=== PATIENT | male | born 1965 | race Caucasian/White ===

== ENCOUNTER 2019-05-30 08:31 | Day surgery (SDC) | payer OTHER ==
[2019-05-28 17:55] VITALS: BMI 27.2
--- NOTE | 2019-05-30 09:40 | HP ---
Satellite [facility] - Chief Complaint Chief Complaint: left shoulder pain - Past Medical History Allergies/Adverse Reactions: Allergies Allergy/AdvReac Type Severity Reaction Status Date / Time No Known Allergies Allergy Verified 05/30/19 09:11 - Current Medications Current Medications: Home Medications Medication Instructions Recorded Amlodipine Besylate 5 mg PO DAILY 05/28/19 Famotidine [Pepcid -] 40 mg PO DAILY 05/28/19 Hydrocodone/Acetaminophen 1 each PO Q6H #20 tablet MDD 4 05/30/19 [Hydrocodone-Acetamin 5-325 mg] Satellite Physical Exam - Physical Examination Vital Signs: Vital Signs Period Temp Pulse Resp BP Sys/Sharp Pulse Ox Last 24 Hr 98.6 F 66 20 132/93 97 General Appearance: Well Nourished, Well Developed, Alert & Oriented x3 ENT: Clear Lung: Normal air movement Extremities: Other (left shoulder- + ttp, decr rom, + neer, + acuña, + empty can, nvi, MRI + rct) Neurological: Intact, Alert, Oriented Satellite Impression/Plan - Impression/Plan Impression: left shoulder rct Operative Procedure: left shoulder arthroscopy with RCR, SAD Date to be Performed: 05/30/19
[2019-05-30] MEDS ORDERED: SUCCINYLCHOLINE CHLORIDE 200 MG/10 ML SYRINGE ONE (09:47)
[2019-05-30] MEDS ORDERED: PROPOFOL 20 ML ONE ×2 (09:47→10:46)
[2019-05-30] MEDS ORDERED: ceFAZolin SODIUM 1 GM VIAL ONE (09:48)
[2019-05-30] MEDS ORDERED: DEXAMETHASONE SOD PHOSPHATE 4 MG/1 ML VIAL ONE (09:48)
[2019-05-30] MEDS ORDERED: SODIUM CHLORIDE 0.9% P/F 10 ML VIAL IJ ONE ×2 (09:48→09:51)
[2019-05-30] MEDS ORDERED: LIDOCAINE HCL/PF 2% SDV 5ML VIAL ONE (09:48)
[2019-05-30] MEDS ORDERED: ROPIVACAINE HCL 0.5% 30ML VIAL ONE (09:55)
[2019-05-30] MEDS ORDERED: LIDOCAINE HCL 1%, 10 MG/ML (20ML VIAL) ONE (09:55)
[2019-05-30] MEDS ORDERED: MIDAZOLAM HCL 2 MG/2 ML SINGLE DOSE VIAL ONE (09:56)
[2019-05-30] MEDS ORDERED: ceFAZolin SODIUM 1 GM VIAL IVPB ONE (10:52)
[2019-05-30] MEDS ORDERED: ePHEDrine SULFATE 50 MG/1 ML AMPULE ONE (10:57)
[2019-05-30] MEDS ORDERED: LACTATED RINGERS SOLUTION 1,000 ML IV SCH (12:00)
--- NOTE | 2019-05-30 12:01 | OP ---
Operative Note - Note: Operative Date: 05/30/19 ([facility]) Pre-Operative Diagnosis: left shoulder rct Operation: left shoulder arthroscopy with RCR, SAD Post-Operative Diagnosis: Same as Pre-op Surgeon: Franklyn Albright System Manager: Erik Mendez Anesthesiologist/MACHINING ASSOCIATE: Andi Hinton Anesthesia: General, Local Specimens Removed: shavings Estimated Blood Loss (mls): 5
[2019-05-30 12:34] VITALS: TEMP 97.6
[2019-05-30 13:55] VITALS: BP 133/83; PULSE 75
--- NOTE | 2019-05-31 08:23 | OP ---
DATE OF OPERATION: 05/30/2019 PREOPERATIVE DIAGNOSIS: Left shoulder impingement syndrome and rotator cuff tear. POSTOPERATIVE DIAGNOSIS: Left shoulder impingement syndrome and rotator cuff tear. PROCEDURES PERFORMED: Left shoulder arthroscopy, subacromial decompression, distal clavicle excision and arthroscopic rotator cuff repair. SURGEON: Bridgette Willard M.D. CABLE SPLICER HELPER: SHARAN Scott ANESTHESIOLOGIST: Andi Hinton CRNA ANESTHESIA: Left interscalene block with LMA anesthesia. DRAINS: None. COMPLICATIONS: None. SPECIMENS: Arthroscopic shavings. BLOOD LOSS: 15 mL. BLOOD GIVEN: None. FLUID REPLACEMENT: PlasmaLyte 1000 mL. INDICATIONS: This patient is a 54-year-old male with the preoperative diagnosis of left shoulder pain, impingement syndrome, and rotator cuff tear. After understanding the potential risks, complications, alternatives and benefits of surgery versus nonsurgical treatment, the patient elected to undergo this procedure. DESCRIPTION PROCEDURE: The patient was brought to the operating room. A peripheral IV was placed and IV sedation given. IV clindamycin 900 mg was given. A left interscalene block was performed. LMA anesthesia was induced. He was placed into the beach-chair position with ample padding throughout. The left upper extremity was prepped and draped in a sterile fashion. The bony landmarks were marked out with a marking pen. A posterior portal was established, and the arthroscope introduced into the glenohumeral joint. Photographs were taken. The joint itself looked good. The air bubbles from the arthroscope stayed in the glenohumeral joint. There was no arthritis. The labrum, the biceps tendon, the biceps anchor and the undersurface of the rotator cuff all looked good. The area was copiously irrigated and washed out. Next our attention was turned to the subacromial space. Here, the patient had a tremendous amount of inflammatory bursitis. A lateral portal was established using a spinal needle and a number 15 scalpel blade, and a Green cannula was introduced into the subacromial space. Then, using the ArthroCare wand, I did a soft tissue decompression. After this extensive soft tissue debridement, this revealed a large, very sharp anterior subacromial spur and a very small distal clavicular spur. Both were taken down with the 5.5-mm oval bur. It was then fine-tuned in reverse. The shaver was introduced into the subacromial space, where I fine-tuned the subacromial and distal clavicle decompression. I removed all bony shavings and debris. I was also able to remove more of the bursa overlying the rotator cuff, revealing a large full-thickness rotator cuff tear. It was crescent-shaped, involving the entire insertion of the supraspinatus. It looks like it delaminated, and from the articular side likely it was not quite a full-thickness tear, but from the bursal side it was at least a 90% full-thickness tear. The edges were debrided. The landing debrided. Additional bursectomy performed. Next, I introduced 4 FiberWire sutures using the Cybera needle passer and put in 2 Arthrex SwiveLock anchors with 2 FiberWires/4 tails each - one posterior and one anterior into the humeral head. It all came down quite nicely. The patient's bone quality was quite good. The excess length of FiberWire was cut. Photographs were taken. I moved his arm, and the rotator cuff moved as a unit with the humerus. Final photographs were taken. The area was copiously irrigated and washed out. All instrumentation and excess saline were removed. The arthroscopy portals were closed with 3-0 nylon sutures. The area was then washed, dried and covered Aquacel dressing. He was placed into a shoulder immobilizer. Total operative time was about 50 minutes. He was extubated and brought to the regular recovery room in stable condition. BRIDGETTE WILLARD M.D. [id number]
--- NOTE | 2019-06-04 16:14 | PATH ---
Surgical Pathology Report Patient Name: WILLEM MOFFETT [facility]. Rec. #: [id number] /Age/Gender: 1965 (Age: 54) / M Account: [id number] Location: [facility] SURGICAL Taken: 05/30/2019 Received: 05/30/2019 Reported: 06/04/2019 Physicians: Franklyn Albright M.D. Specimen(s) Received LEFT SHOULDER SHAVINGS Clinical History Left shoulder tear Final Diagnosis SHOULDER, LEFT, ARTHROSCOPIC SHAVINGS: FIBROSYNOVIAL AND FIBROCARTILAGINOUS TISSUE, SKELETAL MUSCLE, BONE AND CARTILAGE. Electronically Signed Mica Solis M.D. Gross Description Received in formalin, labeled "left shoulder shavings," is a 5.5 x 4.7 x 0.7 cm. aggregate of moreno-yellow soft tissue fragments. A marketing representative portion is submitted in one cassette. 05/31/201905/31/2019
== END 2019-05-30 13:55 | disposition home or self-care (01) ==
LOC: JASU-SURG 08:31
PROVIDERS: ATTEND Orthopaedic Surgery
PROC: 0PBB4ZZ Excision of Left Clavicle, Percutaneous Endoscopic Approach (ICD-10-PCS; 2019-05-30)
PROC: 0RNK4ZZ Release Left Shoulder Joint, Percutaneous Endoscopic Approach (ICD-10-PCS; principal; 2019-05-30 11:00)
PROC: 0LQ24ZZ Repair Left Shoulder Tendon, Percutaneous Endoscopic Approach (ICD-10-PCS; 2019-05-30 11:00)
DX: M75.42 Impingement syndrome of left shoulder (principal); M75.102 Unspecified rotator cuff tear or rupture of left shoulder, not specified as traumatic
CPT/HCPCS: 88304-TC; 94760